=== PATIENT | female | born 1955 | race Caucasian/White ===

== ENCOUNTER → 2016-09-16 | Outpatient (CLI) | payer BC ==
[~2016-09-16] VITALS: Ht 160 cm; Wt 73.2 kg
[~2016-09-16] MED LIST: CELEXA40 MG PO; GLUCOSAMINE 1000 PO; MELATONIN5 M1 SL; PERCOCET 325 MG1 TAB PO; PRILOSEC 20MG20 MG PO; RITALIN10 MG PO; TYLENOL 8 HR PO
[2016-09-16 09:52] VITALS: BP 144/90; PULSE 92
[2016-09-16 10:40] VITALS: BP 86/58; PULSE 47
[2016-09-16 10:50] VITALS: BP 106/70; PULSE 65
[2016-09-16 11:00] VITALS: BP 130/86; PULSE 82
== END ==
LOC: COL.RAD 09:19
DX: M51.26 Other intervertebral disc displacement, lumbar region (principal)
CPT/HCPCS: J3301

== ENCOUNTER → 2016-10-08 | Outpatient (CLI) | payer BC ==
[~2016-10-08] VITALS: Ht 160 cm; Wt 72.7 kg
[2016-10-08 10:03] VITALS: BP 147/98; PULSE 96
[2016-10-08 12:10] VITALS: BP 82/59; PULSE 55
[2016-10-08 12:25] VITALS: BP 106/72; PULSE 72
== END ==
LOC: COL.RAD 08:45
DX: M51.26 Other intervertebral disc displacement, lumbar region (principal)
CPT/HCPCS: J3301

== ENCOUNTER → 2017-06-14 | Outpatient (CLI) | payer BC | LOC: MC.RAD 08:40 | DX: Z12.31 Encounter for screening mammogram for malignant neoplasm of breast (principal) ==

== ENCOUNTER → 2019-01-24 | Outpatient (CLI) | payer BC | LOC: MC.RAD 08:37 | DX: Z12.31 Encounter for screening mammogram for malignant neoplasm of breast (principal) ==

== ENCOUNTER 2020-06-11 20:04 | Inpatient (IN) | payer BC ==
[~2020-06-11] VITALS: Ht 160 cm; Wt 73.5 kg
[2020-06-11] MEDS ORDERED: MOBIC15 MG PO (20:36)
[2020-06-11] MEDS ORDERED: LIPITOR 40MG TA40 MG PO (20:37)
[2020-06-11] MEDS ORDERED: HCTZ 25MG TAB25 MG PO (20:38)
[2020-06-11] MEDS ORDERED: ASPIRIN E.C. 8181 MG PO (20:38)
[2020-06-11 20:50] LABS: BASO # 0.1 (0.0-0.2); BASO % 0.7 % (0.0-2.0); EOS # 0.1 (0.0-0.7); EOS % 1.3 % (0-4.0); GRAN % 47.1 % (42.2-75.2); HEMATOCRIT 41.5 % (37.0-47.0); HEMOGLOBIN 14.2 g/dl (12.5-16.0); LYMPH # 3.6 (1.2-3.4); MEAN CELL VOLUME 95 fl (80.0-100.0); MEAN CORPUSCULAR HEMOGLOBIN 32 pg (27.0-31.0); MEAN CORPUSCULAR HGB CONC 34 g/dl (33.0-37.0); MEAN PLATELET VOLUME 9.2 fl (7.4-10.4); MONO # 0.7 (0.1-0.6); MONO % 7.8 % (1.7-9.3); PLATELET COUNT 315 K/mm3 (130-400); RED BLOOD COUNT 4.39 M/mm3 (4.10-5.30); REDCELL DISTRIBUTION WIDTH-CV 12.4 % (11.5-14.5)
[2020-06-11 20:55] LABS: INR 0.9 (0.8-3.0); PROTHROMBIN TIME 9.9 SECONDS (9.7-12.8)
[2020-06-11 20:57] LABS: ALANINE AMINOTRANSFERASE 26 U/L (4-34); ALBUMIN 4.1 gm/dL (3.5-5.0); ALKALINE PHOSPHATASE 113 U/L (50-136); ANION GAP 6 mmol/L (7-16); AST,SGOT 35 U/L (15-37); BILIRUBIN,TOTAL 0.5 mg/dL (0.0-1.0); BLOOD UREA NITROGEN 20 mg/dL (7-17); CALCIUM 9.5 mg/dL (8.4-10.2); CARBON DIOXIDE 30 mmol/L (22-30); CHLORIDE 102 mmol/L (98-107); CREATININE, serum 0.79 (0.52-1.25); GLUCOSE 102 mg/dL (74-106); PARTIAL THROMBOPLASTIN TIME 30.8 SECONDS (26.0-37.0); POTASSIUM 3.7 mmol/L (3.4-5.0); SODIUM 138 mmol/L (137-145); TOTAL PROTEIN 7.1 gm/dL (6.4-8.2)
[2020-06-11 21:28] LABS: TROPONIN-I < 0.012 ng/mL (0.000-0.035)
[2020-06-12] VITALS (290 sets, daily range): BP systolic 113–179; BP diastolic 64–103; PULSE 71–108; TEMP 97.8–98.5; O2SAT 81–100
--- NOTE | 2020-06-12 02:32 | NUR ---
Arrived to unit via stretcher; alert and oriented and in no distress. Patient up to bathroom independently. VS stable. Reports intermittent chest and left rib radiating to back pain. Pain is sharp in nature. Currently denies any pain or shortness of air. Call light left within reach.
[2020-06-12 05:35] LABS: BASO % 0.5 % (0.0-2.0); EOS # 0.1 (0.0-0.7); EOS % 1.1 % (0-4.0); GRAN # 4.3 (1.4-6.5); GRAN % 52.7 % (42.2-75.2); HEMATOCRIT 42.3 % (37.0-47.0); HEMOGLOBIN 14.3 g/dl (12.5-16.0); LYMPH % 37.5 % (20.0-51.0); MEAN CELL VOLUME 94 fl (80.0-100.0); MEAN CORPUSCULAR HEMOGLOBIN 32 pg (27.0-31.0); MEAN CORPUSCULAR HGB CONC 34 g/dl (33.0-37.0); MEAN PLATELET VOLUME 9.2 fl (7.4-10.4); MONO # 0.7 (0.1-0.6); PLATELET COUNT 287 K/mm3 (130-400); RED BLOOD COUNT 4.51 M/mm3 (4.10-5.30); REDCELL DISTRIBUTION WIDTH-CV 12.7 % (11.5-14.5)
[2020-06-12 05:49] LABS: ANION GAP 6 mmol/L (7-16); BLOOD UREA NITROGEN 14 mg/dL (7-17); CALCIUM 9.2 mg/dL (8.4-10.2); CARBON DIOXIDE 28 mmol/L (22-30); CHLORIDE 106 mmol/L (98-107); CHOLESTEROL 181 mg/dL (120-200); CHOLESTEROL RISK RATIO 3.7; CREATININE, serum 0.69 (0.52-1.25); GLUCOSE 96 mg/dL (74-106); HDL CHOLESTEROL 48 mg/dL; LDL CHOLESTEROL 102 mg/dL; POTASSIUM 3.9 mmol/L (3.4-5.0); SODIUM 141 mmol/L (137-145); TRIGLYCERIDE 156 mg/dL
[2020-06-12 06:04] LABS: TROPONIN-I 6 HR POST INITIAL < 0.012 ng/mL (0.000-0.034)
--- NOTE | 2020-06-12 10:11 | NUR ---
SEE JOSE FOR ALL MEDICATION ADMINISTRATION TIMES, INTRA AND POST SEDATION ASSESSMENT
--- NOTE | 2020-06-12 10:42 | NUR ---
The patient is to transfer to [facility] in [place] for further care.
[2020-06-12 12:55] LABS: PARTIAL THROMBOPLASTIN TIME > 400.0 SECONDS (26.0-37.0)
--- NOTE | 2020-06-12 14:31 | NUR ---
Initial visit; Patient thanked [employer] Sergeant for looking in on her, offering comfort and prayer prior to her transfer to [facility] for heart surgery.
--- NOTE | 2020-06-12 15:00 | NUR ---
REPORT GIVEN TO [facility] AND MILDRED RIOS AT [facility]. PATIENT LEAVES WITH [facility] AT THIS TIME. UPDATE GIVEN TO MADELINE LOPEZ
== END 2020-06-12 15:00 | disposition short-term general hospital (02) | DRG 287 ==
LOC: COL.ER 20:04 → ICU 22:16 → COL.ER 22:29 → ICU 22:29
PROVIDERS: Family Medicine; Nurse Practitioner Family; ADMIT Internal Medicine
PROC: 4A023N8 Measurement of Cardiac Sampling and Pressure, Bilateral, Percutaneous Approach (ICD-10-PCS; principal; 2020-06-12)
PROC: B2111ZZ Fluoroscopy of Multiple Coronary Arteries using Low Osmolar Contrast (ICD-10-PCS; 2020-06-12)
DX: I25.110 Atherosclerotic heart disease of native coronary artery with unstable angina pectoris (principal); I24.9 Acute ischemic heart disease, unspecified; E78.5 Hyperlipidemia, unspecified; I10 Essential (primary) hypertension; R00.1 Bradycardia, unspecified; F90.9 Attention-deficit hyperactivity disorder, unspecified type
CPT/HCPCS: OP; 99223-AI; 99239; C9113; J0360; J1644; J2250; J3010; J7030; Q9967

== ENCOUNTER → 2021-05-01 | Outpatient (CLI) | payer BC ==
[~2021-05-01] MED LIST changes: +ASPIRIN E.C. 8181 MG PO; +HCTZ 25MG TAB25 MG PO; +LIPITOR 40MG TA40 MG PO; +MOBIC15 MG PO
== END ==
LOC: MC.RAD 08:07
DX: Z12.31 Encounter for screening mammogram for malignant neoplasm of breast (principal)

== ENCOUNTER → 2022-12-16 | Outpatient (CLI) | payer MEDICARE, OTHER | LOC: COL.VAS 13:06 | DX: R60.0 Localized edema (principal); R94.6 Abnormal results of thyroid function studies ==

== ENCOUNTER 2023-09-22 07:58 | Day surgery (SDC) | payer MEDICARE, OTHER ==
[~2023-09-22] VITALS: Ht 160 cm; Wt 66.5 kg
[~2023-09-22 07:58] MED LIST changes: +RITALIN 20M20 MG/TAB
[2023-09-22] MEDS ORDERED: NORVASC 5MG5 MG/TAB PO (08:17)
[2023-09-22] MEDS ORDERED: PLAVIX 75MG TAB75 MG PO (08:18)
[2023-09-22] MEDS ORDERED: SYNTHROID 0.0.025 MG PO (08:18)
[2023-09-22] MEDS ORDERED: CITRACAL + D CA1 TAB PO (08:19)
[2023-09-22] MEDS ORDERED: COZAAR100 MG PO (08:20)
--- NOTE | 2023-09-22 08:41 | NUR ---
Pt with at chairside; reports bowels are clear, did finish prep and self administered a fleet enema this AM, of note pt states she may have slightly scratched herself upon insertion but there is no bleeding; meds and history reviewed, pt did take meloxicam this AM and last took Plavix 09/16; VSS; 22G PIV placed to MERLIN; consents signed and all questions answered; to await procedure.
[2023-09-22 08:44] VITALS: BP 149/89; PULSE 84; TEMP 97
[2023-09-22 11:00] VITALS: BP 133/84; PULSE 63; TEMP 96.7
[2023-09-22 11:15] VITALS: BP 126/67; PULSE 60
--- NOTE | 2023-09-22 11:46 | NUR ---
1100-PT ARRIVED VIA CART TO [facility] [address] , PATIENT ALERT ON ARRIVAL. AMBULATED WITH ASSISTANCE TO RECLINER, WARM BLANKET PROVIDED. VITAL SIGNS TAKEN, VSS. PT DENIES PAIN OR NAUSEA. REPORT OBTAINED FROM MILDRED COLLINS. UPDATE GIVEN TO PATIENT AND FAMILY AT BEDSIDE. 1115-VSS. PT TOLERATING PO INTAKE WITHOUT COMPLAINTS, DENIES PAIN OR NAUSEA. 1130-DISCHARGE INSTRUCTIONS REVIEWED WITH PT AND FAMILY, QUESTIONS INVITED. PATIENT CHANGED INTO CLOTHING INDEPENDENTLY. 1130-IV CATHETER DISCONTINUED, TIP INTACT. PRESSURE HELD AND BANDAGE APPLIED. 1145-PATIENT DISCHARGED HOME TO PO VIA WHEELCHAIR, ACCOMPANIED BY FAMILY. ALL BELONGINGS AND D/C PAPERWORK SENT WITH PT.
== END 2023-09-22 11:45 | disposition home or self-care (01) ==
LOC: SDCO 07:58
DX: Z12.11 Encounter for screening for malignant neoplasm of colon (principal); D12.2 Benign neoplasm of ascending colon; K57.30 Diverticulosis of large intestine without perforation or abscess without bleeding; Z87.891 Personal history of nicotine dependence
CPT/HCPCS: J2704; J7120